=== PATIENT | male | born 1995 | race Caucasian/White ===

== ENCOUNTER 2017-06-30 12:55 | Emergency (ER) | payer MEDICAID ==
[~2017-06-30] VITALS: Ht 170.2 cm; Wt 65.9 kg
[2017-06-30 14:50] VITALS: BP 110/61
[2017-06-30] MEDS ORDERED: IBUPROFEN 800 MG TABLET PO ONE (15:15)
== END 2017-06-30 15:48 | disposition home or self-care (01) ==
LOC: EMS 12:56
DX: S92.351A Displaced fracture of fifth metatarsal bone, right foot, initial encounter for closed fracture (principal); F12.90 Cannabis use, unspecified, uncomplicated; W22.8XXA Striking against or struck by other objects, initial encounter; Y93.39 Activity, other involving climbing, rappelling and jumping off; Y92.89 Other specified places as the place of occurrence of the external cause; Y99.8 Other external cause status
CPT/HCPCS: 99284